=== PATIENT | male | born 1965 | race Caucasian/White ===

== ENCOUNTER → 2017-01-22 | Outpatient (CLI) | payer OTHER ==
[2017-01-22 09:04] LABS: CHLORIDE,CL 99 mmol/L (98-110); SODIUM,NA 137 mmol/L (136-146)
== END | disposition home or self-care (01) ==
LOC: MW.CHFP 08:08
PROVIDERS: ATTEND Student in an Organized Health Care Education/Training Program
DX: E78.1 Pure hyperglyceridemia (principal); I10 Essential (primary) hypertension
CPT/HCPCS: 36415; 80053; 80061